=== PATIENT | female | born 1960 | race Caucasian/White ===

== ENCOUNTER → 2017-05-10 | Outpatient (CLI) | payer OTHER | LOC: MAMO 04-28 10:30 | DX: Z12.31 Encounter for screening mammogram for malignant neoplasm of breast (principal) | CPT/HCPCS: G0202 ==

== ENCOUNTER 2021-01-14 16:54 | Emergency (ER) | payer OTHER ==
[~2021-01-14 16:54] MED LIST: CORTIZONE-1057 GM TP; MEDROL4 MG PO; NORCO 5-325 TA1 EACH PO; OMNICEF 300 MG300 MG PO
[2021-01-14 20:20] LABS: HEMOGLOBIN 14.9 gm/dl (12.3-15.3); RED BLOOD COUNT 5.07 M/UL (4.00-5.10); WHITE BLOOD COUNT 11.6 K/UL (4.5-11.0)
[2021-01-14 20:40] LABS: BUN/CREATININE RATIO 23 (0-10)
== END 2021-01-14 22:28 | disposition home or self-care (01) ==
LOC: ER1 16:54
PROVIDERS: Student in an Organized Health Care Education/Training Program
DX: M25.512 Pain in left shoulder (principal); J44.9 Chronic obstructive pulmonary disease, unspecified; I25.10 Atherosclerotic heart disease of native coronary artery without angina pectoris; Z79.82 Long term (current) use of aspirin; Z79.899 Other long term (current) drug therapy; F17.210 Nicotine dependence, cigarettes, uncomplicated; Z20.822 Contact with and (suspected) exposure to COVID-19; Z71.6 Tobacco abuse counseling
CPT/HCPCS: 0240U; 36415; 71046; 80053; 81001; 82550; 82553; 83690; 83874; 84484; 85025; 85610; 85730; 93005; 99285

== ENCOUNTER 2022-01-18 09:34 | Observation (INO) | payer OTHER ==
[~2022-01-18] VITALS: Ht 165.1 cm; Wt 79.4 kg
[2022-01-18 10:23] LABS: HEMOGLOBIN 14.9 gm/dl (12.3-15.3); RED BLOOD COUNT 5.16 M/UL (4.00-5.10); WHITE BLOOD COUNT 6.8 K/UL (4.5-11.0)
[2022-01-18 11:36] LABS: BUN/CREATININE RATIO 15 (0-10)
[2022-01-18] MEDS ORDERED: EUTHYROX88 MCG PO (13:11)
[2022-01-18] MEDS ORDERED: VITAMIN D21250 MCG PO (13:12)
[2022-01-18] MEDS ORDERED: PROAIR HFA8.5 GM INH (13:12)
[2022-01-18] MEDS ORDERED: LISINOPRIL40 MG PO (13:12)
[2022-01-18] MEDS ORDERED: DICLOFENAC SODI75 MG PO (13:12)
[2022-01-18] MEDS ORDERED: AMLODIPINE BESY10 MG PO (13:13)
[2022-01-18] MEDS ORDERED: ASPIRIN EC81 MG PO (13:13)
[2022-01-18] MEDS ORDERED: CYCLOBENZAPRINE10 MG PO (13:13)
[2022-01-18] MEDS ORDERED: ISOSORBIDE MONO30 MG PO (13:13)
[2022-01-18] MEDS ORDERED: METOPROLOL TART25 MG PO (13:14)
[2022-01-18] MEDS ORDERED: BREO ELLIPTA 11 EACH INH (13:14)
[2022-01-18] MEDS ORDERED: SERTRALINE HCL100 MG PO (13:14)
--- NOTE | 2022-01-19 00:27 | NUR ---
MADE THREE ATTEMPTS TO CONTACT MD REGARDING CRITICAL LABS. THIRD ATTEMPT I WAS ABLE TO INFORM HIM OF LABS AND OBTAIN ORDERS, THE ORDERS ARE PLACED AND WILL CONTINUE TO MONITORE THE PATIENT
[2022-01-19 00:41] LABS: HEMOGLOBIN 13.7 gm/dl (12.3-15.3); RED BLOOD COUNT 4.87 M/UL (4.00-5.10); WHITE BLOOD COUNT 7.2 K/UL (4.5-11.0)
[2022-01-19 01:19] LABS: BUN/CREATININE RATIO 24 (0-10)
--- NOTE | 2022-01-19 03:00 | NUR ---
PATIENT WENT OUT TO SMOKE WITH HEPARIN DRIP AFTER INFORMED OF THE RISKS.
--- NOTE | 2022-01-19 15:22 | NUR ---
PT ADIMANT ABOUT GOING OUT TO SMOKE,DR SPAIN NOTIFIED RISK DISCUSSED PT VOICES UNDERSTANDING AND RISK. [facility] PRESENT
[2022-01-19] MEDS ORDERED: ATORVASTATIN CA20 MG PO (15:33)
[2022-01-19] MEDS ORDERED: LISINOPRIL40 MG PO (15:39)
--- NOTE | 2022-01-19 19:08 | NUR ---
1908 WENT INTO PATIENT TO REMOVE AIR FROM TR BAND. PATIENT WAS OUT OF THE ROOM TO SMOKE. I CONTACTED PATIENT ON HER CELL PHONE AND EXPLAINED TO HER THAT THE AIR NEEDED TO BE RELEASED Q15 MIN AND THE HEPARIN DRIP NEEDED TO BE RESTARTED. THIS IS ALL A TIMED PROCESS AND NEEDS TO BE DONE BEFORE SHE CAN BE TRANSFERED OUT TO [facility]. PATIENT STATED SHE WILL BE BACK TO HER ROOM SOON SHES DONE SMOKING.
--- NOTE | 2022-01-19 21:06 | NUR ---
PATIENT TRANSFERED OUT TO [facility]. TR BAND WAS REMOVED AND HEPARIN DRIP WAS NOT RESTARTED D/T THE TR BAND REMOVAL NOT BEING OFF FOR 1 HOUR TOTAL. ALSO A PTT REDRAW WAS NOT COMPLETED ON PATIENT SINCE SHES RETURNED FROM PROCEDURE TO KNOW WHERE TO RESTART THE HEPARIN. PROTOCOL FORMS WERE SENT WITH THE PATIENT AND HER TRANSFER PACKET.
== END 2022-01-19 21:21 | disposition short-term general hospital (02) ==
LOC: ER1 09:34 → CDU 12:26 → MED SURG 4 12:26
PROVIDERS: Physician Assistant; ADMIT Internal Medicine
PROC: 4A023N7 Measurement of Cardiac Sampling and Pressure, Left Heart, Percutaneous Approach (ICD-10-PCS; principal; 2022-01-19)
PROC: B2161ZZ Fluoroscopy of Right and Left Heart using Low Osmolar Contrast (ICD-10-PCS; 2022-01-19)
DX: I25.10 Atherosclerotic heart disease of native coronary artery without angina pectoris (principal); Z20.822 Contact with and (suspected) exposure to COVID-19; T82.855A Stenosis of coronary artery stent, initial encounter; Y71.0 Diagnostic and monitoring cardiovascular devices associated with adverse incidents; R77.8 Other specified abnormalities of plasma proteins; I10 Essential (primary) hypertension; E78.5 Hyperlipidemia, unspecified; J44.9 Chronic obstructive pulmonary disease, unspecified; E03.9 Hypothyroidism, unspecified; F17.210 Nicotine dependence, cigarettes, uncomplicated; Z79.82 Long term (current) use of aspirin; Z79.899 Other long term (current) drug therapy; Z91.040 Latex allergy status; Z95.5 Presence of coronary angioplasty implant and graft
CPT/HCPCS: 36415; 71045; 80048; 80053; 82550; 82553; 84484; 85025; 85730; 93005; 93571; 96374; 96376; 99152; 99153; 99285; C1769; C1887; C1894; G0378; J0153; J0360; J1644; J2060; J2250; J3010; J7040; Q9967; U0002

== ENCOUNTER → 2022-06-29 | Outpatient (CLI) | payer OTHER ==
[~2022-06-29] MED LIST changes: +AMLODIPINE BESY10 MG PO; +ASPIRIN EC81 MG PO; +ATORVASTATIN CA20 MG PO; +BREO ELLIPTA 11 EACH INH; +CYCLOBENZAPRINE10 MG PO; +DICLOFENAC SODI75 MG PO; +EUTHYROX88 MCG PO; +ISOSORBIDE MONO30 MG PO; +LISINOPRIL40 MG PO; +METOPROLOL TART25 MG PO; +PROAIR HFA8.5 GM INH; +SERTRALINE HCL100 MG PO; +VITAMIN D21250 MCG PO
== END ==
LOC: EXRD 11:00
DX: I73.9 Peripheral vascular disease, unspecified (principal); R60.9 Edema, unspecified
CPT/HCPCS: 93925